=== PATIENT | female | born 1960 | race Two or more races ===

== ENCOUNTER 2022-10-02 09:09 | Emergency (ER) | payer SELFPAY ==
[~2022-10-02] VITALS: Ht 167.6 cm; Wt 90.7 kg
[2022-10-02 09:35] VITALS: BP 133/80
== END 2022-10-02 10:23 | disposition home or self-care (01) ==
LOC: ER 09:09
DX: H54.61 Unqualified visual loss, right eye, normal vision left eye (principal)
CPT/HCPCS: 99284-25

== ENCOUNTER → 2023-04-12 | Outpatient (CLI) | payer OTHER ==
[2023-04-19 09:58] LABS: HPV GENOTYPE 16 Not Detected; HPV GENOTYPE 18 Not Detected; HPV HIGH RISK Not Detected; HPV SOURCE Cervical
== END ==
LOC: LAB 18:02 → LAB SHORT 18:02
PROVIDERS: Physician Assistant
DX: Z01.419 Encounter for gynecological examination (general) (routine) without abnormal findings (principal)
CPT/HCPCS: 87624; G0123